=== PATIENT | female | born 1990 | race Caucasian/White ===

== ENCOUNTER 2017-02-22 13:15 | Emergency (ER) | payer BC, MEDICAID, OTHER ==
[~2017-02-22 13:15] MED LIST: ETHO250 PO; FIBECAP2 PO; FOLBTAB4; GNP50LIQ PO; LAMO100 PO; LEVE500 PO; SERO400T3 PO; [UNRECOGNIZED DRUG - REMARK] PO
[2017-02-22 13:17] VITALS: BP 134/83; PULSE 100; RESP 16; TEMP 98.3; O2SAT 100
[2017-02-22] MEDS ORDERED: SODIUM CHLOR 0.9% 1000 ML INJ 1,000 ML IV ONE (13:20)
[2017-02-22 13:23] VITALS: O2SAT 98
--- NOTE | 2017-02-22 13:26 | PD ---
HPI Chief Complaint: SEIZURE,POST ICTAL Time Seen by Provider: 13:20 Travel History International Travel<30 days: No Contact w/Intl Traveler<30days: No Traveled to known affect area: No History of Present Illness HPI PATIENT ARRIVED IN POST ICTAL CONFUSION, NONVERBALLY RESPONSIVE WITH MOTHER AT BEDSIDE, AND SHE GIVES ALL HISTORY....PER MOM PATIENT HAD A TONIC CLONIC SEIZURE AND HIT HER HEAD ON WAY DOWN....HAS H/O SEIZURES ON MULTIPLE ANTIEPILEPTICS AND MANAGED BY NEUROLOGIST AT [facility]. MOM NOTED LEFT SIDED HEAD "GOOSE EGG" THAT WAS BLEEDING AT HOME. ALL:DEPAKOTE AND PCN PMHX: HIRSCHSPRUNG, SEIZURE DISEASE, BIPOLAR PFSH Past Medical History Autoimmune Disease: No Blood Disorders: No Bipolar Disorder: Yes Cancer: No Cardiovascular Problems: No Diabetes: No Diminished Hearing: No Gastrointestinal Disorders: Yes (hirschsprung disease) Musculoskeletal: No Neurologic: Yes Psychiatric: Yes Respiratory: No Seizures: Yes Thyroid Disease: No Ulcer: No : 0 Past Surgical History Abdominal Surgery: Yes (colostomy 1988-revision 1989) Other Surgery: Yes (1988-hirschsprung disease repair, 1989 reattachment surgery ) Social History Alcohol Use: No Tobacco Use: No Substance Use: No Allergies-Medications (Allergen,Severity, Reaction): Coded Allergies: divalproex sodium (Unverified Allergy, Severe, DROWSINESS, 10/29/16) penicillin G (Unverified Allergy, Intermediate, HIVES, 10/29/16) Reported Meds & Prescriptions Reported Meds & Active Scripts Active Reported [Onsi ] 15 Mg PO BID Fiber Formula (Fiber) Cap 1 PO Folbic (Folic Bbrx-Cvqxvcrwhe-Rdkwhums) Tab Stool Softener (Docusate Sodium) 50 Mg/5 Ml Liq 50 Mg PO BID Seroquel Xr (Quetiapine Fumarate) 400 Mg Tab 400 Mg PO HS Keppra (Levetriacetam) 500 Mg Tab 1,500 Mg PO BID Zarontin (Ethosuximide) 250 Mg Cap 500 Mg PO BID Lamictal (Lamotrigine) 100 Mg Tab 400 Mg PO BID Review of Systems Except as stated in HPI: all other systems reviewed are Neg General / Constitutional: No: Fever Eyes: No: Visual changes HENT: No: Headaches Cardiovascular: No: Chest Pain or Discomfort Respiratory: No: Shortness of Breath Gastrointestinal: No: Abdominal Pain Genitourinary: No: Dysuria Musculoskeletal: No: Pain Skin: No Rash Neurologic: Positive: Seizures Psychiatric: No: Depression Endocrine: No: Polydipsia Hematologic/Lymphatic: No: Easy Bruising Physical Exam Narrative GENERAL: SKIN: Warm and dry. HEAD: BHT WITH HEMATOMA ON POSTERIOR LEFT OCCIPITAL AREA 5CM WIDE. NO STEPOFF , NO CREPITUS EYES: Pupils equal and round. No scleral icterus. No injection or drainage. ENT: No nasal bleeding or discharge. Mucous membranes pink and moist. NO HEMOTYMPANUM NECK: Trachea midline. No JVD. CARDIOVASCULAR: Regular rate and rhythm. RESPIRATORY: No accessory muscle use. Clear to auscultation. Breath sounds equal bilaterally. GASTROINTESTINAL: Abdomen soft, non-tender, nondistended. Hepatic and splenic margins not palpable. MUSCULOSKELETAL: Extremities without clubbing, cyanosis, or edema. No obvious deformities. NEUROLOGICAL: Awake BUT IN POST ICTAL CONFUSION 14/15 MOTOR Grossly within normal limits. Five out of 5 muscle strength in the arms and legs. Normal speech. PSYCHIATRIC: Appropriate mood and affect; insight and judgment normal. Data Data Last Documented VS Vital Signs Date Time Temp Pulse Resp B/P (MAP) Pulse Ox O2 Delivery O2 Flow Rate FiO2 02/22/17 13:23 98 Room Air 02/22/17 13:17 98.3 100 16 134/83 (100) Orders Orders Complete Blood Count With Diff (02/22/17 13:20) Alcohol (Ethanol) (02/22/17 13:20) Drug Screen, Random Urine (02/22/17 13:20) Ct Brain W/O Iv Contrast(Rout) (02/22/17 ) Blood Glucose (02/22/17 13:20) Ecg Monitoring (02/22/17 13:20) Iv Access Insert/Monitor (02/22/17 13:20) Oximetry (02/22/17 13:20) Comprehensive Metabolic Panel (02/22/17 13:20) Sodium Chlor 0.9% 1000 Ml Inj (Ns 1000 M (02/22/17 13:20) Sodium Chloride 0.9% Flush (Ns Flush) (02/22/17 13:30) Urinalysis - C+S If Indicated (02/22/17 13:20) Ed Discharge Order (02/22/17 16:08) Labs Laboratory Tests Test 02/22/17 13:43 02/22/17 15:34 White Blood Count 5.6 TH/MM3 Red Blood Count 4.06 MIL/MM3 Hemoglobin 11.8 GM/DL Hematocrit 36.0 % Mean Corpuscular Volume 88.7 FL Mean Corpuscular Hemoglobin 29.0 PG Mean Corpuscular Hemoglobin Concent 32.7 % Red Cell Distribution Width 13.6 % Platelet Count 225 TH/MM3 Mean Platelet Volume 8.6 FL Neutrophils (%) (Auto) 70.5 % Lymphocytes (%) (Auto) 21.2 % Monocytes (%) (Auto) 6.0 % Eosinophils (%) (Auto) 1.8 % Basophils (%) (Auto) 0.5 % Neutrophils # (Auto) 4.0 TH/MM3 Lymphocytes # (Auto) 1.2 TH/MM3 Monocytes # (Auto) 0.3 TH/MM3 Eosinophils # (Auto) 0.1 TH/MM3 Basophils # (Auto) 0.0 TH/MM3 CBC Comment DIFF FINAL Differential Comment Blood Urea Nitrogen 12 MG/DL Creatinine 0.91 MG/DL Random Glucose 96 MG/DL Total Protein 7.3 GM/DL Albumin 3.5 GM/DL Calcium Level 8.7 MG/DL Alkaline Phosphatase 121 U/L Aspartate Amino Transf (AST/SGOT) 12 U/L Alanine Aminotransferase (ALT/SGPT) 16 U/L Total Bilirubin 0.2 MG/DL Sodium Level 141 MEQ/L Potassium Level 3.7 MEQ/L Chloride Level 112 MEQ/L Carbon Dioxide Level 17.9 MEQ/L Anion Gap 11 MEQ/L Estimat Glomerular Filtration Rate 74 ML/MIN Ethyl Alcohol Level LESS THAN 3 MG/DL Urine Collection Type CLEAN CATCH Urine Color YELLOW Urine Turbidity CLEAR Urine pH 6.0 Urine Specific [place] 1.013 Urine Protein NEG mg/dL Urine Glucose (UA) NEG mg/dL Urine Ketones NEG mg/dL Urine Occult Blood LARGE Urine Nitrite NEG Urine Bilirubin NEG Urine Leukocyte Esterase NEG Urine RBC 4-9 /hpf Urine WBC 0-2 /hpf Microscopic Urinalysis Comment CULT NOT INDICATED Urine Opiates Screen NEG Urine Barbiturates Screen NEG Urine Amphetamines Screen NEG Urine Benzodiazepines Screen NEG Urine Cocaine Screen NEG Urine Cannabinoids Screen NEG MDM Medical Decision Making Medical Screen Exam Complete: Yes Emergency Medical Condition: Yes Medical Record Reviewed: Yes Differential Diagnosis ICH V SKULL FX V SCALP LACERATION V ELECTROLYTE ABNL V DRUG/ETOH V NONCOMPLIANCE V BREAKTHROUGH SEIZURE Narrative Course CT NEG FOR SKULL FX NOR ANY ICH, ONLY SHOWED SCALP CONTUSION ALONG WITH SMALL LAC...CBC AND CMP WNL. PATIENT DID NOT PROVIDE UA IN TIME Procedures Procedure Narrative LACERATION LOCATION: [SCALP TOP OF] LENGTH: [1.5CM] NUMBER OF STITCHES/MICHELLE: [2 MICHELLE] REPAIR: The area of the laceration was prepped with Betadine and sterilely draped. The laceration was NOT ANESTHESIZED . The wound was copiously irrigated and explored without evidence of foreign body, tendon injury or neurovascular injury. The wound was closed using [2 MICHELLE]. A sterile dressing was applied. The patient was advised to keep the dressing clean and dry. Patient tolerated the procedure well. Diagnosis Primary Impression: Occipital scalp laceration Qualified Codes: S01.01XA - Laceration without foreign body of scalp, initial encounter Additional Impressions: Seizure Contusion of scalp, initial encounter Patient Instructions: General Instructions, Laceration (ED), Scalp Contusion in Adults (ED) Disposition: 01 DISCHARGE HOME Condition: Stable Rubens Martinez MD Feb 22, 2017 13:26
[2017-02-22] MEDS ORDERED: SODIUM CHLORIDE 0.9% FLUSH 10 ML FLUSH IVF PRN (13:30)
[2017-02-22 13:49] LABS: BASOPHIL % 0.5 % (0.0-2.0); EOSINOPHIL # 0.1 TH/MM3 (0-0.4); EOSINOPHIL % 1.8 % (0.0-4.0); HEMO FLAGS DIFF FINAL; LYMPH % 21.2 % (9.0-44.0); LYMPHOCYTE # 1.2 TH/MM3 (1.0-4.8); MEAN CELL VOLUME 88.7 FL (80.0-100.0); MEAN CORPUSCULAR HGB CONC 32.7 % (32.0-36.0); NEUT % 70.5 % (16.0-70.0); PLATELET COUNT 225 TH/MM3 (150-450); RED BLOOD COUNT 4.06 MIL/MM3 (4.00-5.30); RED CELL DISTRIBUTION WIDTH 13.6 % (11.6-17.2); WHITE BLOOD COUNT 5.6 TH/MM3 (4.0-11.0)
[2017-02-22 13:59] LABS: CHLORIDE 112 MEQ/L (98-107); POTASSIUM 3.7 MEQ/L (3.5-5.1); SODIUM (NA) 141 MEQ/L (136-145)
[2017-02-22 14:03] LABS: ANION GAP 11 MEQ/L (5-15); BICARBONATE 17.9 MEQ/L (21.0-32.0); BLOOD UREA NITROGEN 12 MG/DL (7-18)
[2017-02-22 14:06] LABS: ALT (GPT) 16 U/L (10-53); AST (GOT) 12 U/L (15-37); GLOMERULAR FILTRATION RATE 74 ML/MIN (>89)
[2017-02-22 14:07] LABS: TOTAL BILIRUBIN ADULT 0.2 MG/DL (0.2-1.0)
[2017-02-22 14:09] LABS: ALKALINE PHOSPHATASE 121 U/L (45-117)
[2017-02-22 14:13] LABS: ALCOHOL LESS THAN 3 MG/DL (0-5)
--- NOTE | 2017-02-22 14:19 | RADRPT ---
EXAM DATE/TIME: 02/22/2017 13:50 [place] COMPARISON: CT BRAIN W/O CONTRAST, February 22, 2011, 17:10. INDICATIONS : Seizure, laceration to back of head from fall. RADIATION DOSE: 61.71 CTDIvol (mGy) MEDICAL HISTORY : Seizures. Hirschsprung disease. SURGICAL HISTORY : Colostomy. ENCOUNTER: Initial ACUITY: 1 day PAIN SCALE: 6/10 LOCATION: occipital TECHNIQUE: Multiple contiguous axial images were obtained of the head. Using automated exposure control and adj ustment of the mA and/or kV according to patient size, radiation dose was kept as low as reasonably a chievable to obtain optimal diagnostic quality images. DICOM format image data is available electro nically for review and comparison. FINDINGS: CEREBRUM: The ventricles are normal for age. No evidence of midline shift, mass lesion, hemorrhage or acute in farction. No extra-axial fluid collections are seen. POSTERIOR FOSSA: The cerebellum and brainstem are intact. The 4th ventricle is midline. The cerebellopontine angle i s unremarkable. EXTRACRANIAL: The visualized portion of the orbits is intact. There is soft tissue swelling of the scalp along the left posterior parietal area. SKULL: The calvaria is intact. No evidence of skull fracture. CONCLUSION: 1. Unremarkable and stable CT scan of the brain compared to the prior exam. 2. Soft tissue swelling of the scalp along the left posterior parietal area. Steve Mcgee MD on February 22, 2017 at 14:16 Board Certified Radiologist. This report was verified electronically.
[2017-02-22 15:42] LABS: BLOOD, URINE LARGE (NEG); GLUCOSE,URINE NEG (NEG); KETONE, URINE NEG (NEG); NITRITE,URINE NEG (NEG)
[2017-02-22 15:46] LABS: METHOD OF COLLECTION CLEAN CATCH; URINE COLOR YELLOW (YELLW/STRAW)
[2017-02-22 15:47] LABS: COMMENT (UR) CULT NOT INDICATED; CULTURE IF INDICATED CULT NOT INDICATED; WBC, URINE 0-2 /hpf (0-5)
[2017-02-22 16:25] VITALS: BP 116/74
== END 2017-02-22 16:27 | disposition home or self-care (01) ==
LOC: PHED 13:15
DX: S01.01XA Laceration without foreign body of scalp, initial encounter (principal); S00.03XA Contusion of scalp, initial encounter; G40.909 Epilepsy, unspecified, not intractable, without status epilepticus; Q43.1 Hirschsprung's disease; F31.9 Bipolar disorder, unspecified; W19.XXXA Unspecified fall, initial encounter
CPT/HCPCS: 12001; 70450; 80053; 80307; 81001; 85025; 99285; J7030

== ENCOUNTER 2017-02-27 07:36 | Emergency (ER) | payer OTHER ==
[~2017-02-27] VITALS: Ht 149.9 cm; Wt 54.0 kg
[2017-02-27 07:37] VITALS: BP 125/61; PULSE 123; RESP 16; TEMP 97.9; O2SAT 100
[2017-02-27] MEDS ORDERED: ETHO250 PO (08:01)
[2017-02-27] MEDS ORDERED: LAMI200T2 PO (08:01)
[2017-02-27] MEDS ORDERED: SERO400T PO (08:01)
[2017-02-27] MEDS ORDERED: BRIV1TAB7 PO (08:01)
[2017-02-27] MEDS ORDERED: TOPI25 PO (08:01)
[2017-02-27] MEDS ORDERED: FOLBTAB4 PO (08:01)
[2017-02-27] MEDS ORDERED: CALC625T9 PO (08:01)
[2017-02-27] MEDS ORDERED: DOCU50CA5 PO (08:01)
--- NOTE | 2017-02-27 08:11 | PD ---
HPI Chief Complaint: Wound/Suture/Staple Re-Check Time Seen by Provider: 08:01 Travel History International Travel<30 days: No Contact w/Intl Traveler<30days: No Traveled to known affect area: No History of Present Illness HPI 26yo F presents with seizure disorder and bipolar disorder presents to the ED requesting staple removal. Pt had seizure 02/22 and had [address] in left parietal scalp. Denies any other complaints . Denies any fever, chest pain, sob , n/v, abdominal pain, urinary complaints, focal weakness or numbness. PFSH Past Medical History Autoimmune Disease: No Blood Disorders: No Bipolar Disorder: Yes Cancer: No Cardiovascular Problems: No Diabetes: No Diminished Hearing: No Gastrointestinal Disorders: Yes (hirschsprung disease) Musculoskeletal: No Neurologic: Yes Psychiatric: Yes Respiratory: No Immunizations Current: Yes Seizures: Yes Thyroid Disease: No Ulcer: No ?: Not LMP: 1 week ago : 0 Past Surgical History Abdominal Surgery: Yes (colostomy 1988-revision 1989) Other Surgery: Yes (1988-hirschsprung disease repair, 1989 reattachment surgery ) Social History Alcohol Use: No Tobacco Use: No (never) Substance Use: No Allergies-Medications (Allergen,Severity, Reaction): Coded Allergies: divalproex sodium (Unverified Allergy, Severe, DROWSINESS, 02/27/17) penicillin G (Unverified Allergy, Intermediate, HIVES, 02/27/17) Reported Meds & Prescriptions Reported Meds & Active Scripts Active Reported Fiber Laxative (Calcium Polycarbophil) 625 Mg Tab 625 Mg PO BID Stool Softener (Docusate Sodium) 50 Mg Capsule 50 Mg PO BID Folbic (Folic Fqnw-Djgqftdwzr-Jlpbfdrq) 2.5-25-2 Mg Tab 1 Tab PO DAILY Topamax (Topiramate) 25 Mg Tab 100 Mg PO BID Briviact (Brivaracetam) 100 Mg Tab 100 Mg PO BID Zarontin (Ethosuximide) 250 Mg Cap 500 Mg PO BID Lamictal XR (Lamotrigine) 200 Mg Lisa 400 Mg PO DAILY Seroquel (Quetiapine Fumarate) 400 Mg Tab 800 Mg PO HS Review of Systems Except as stated in HPI: all other systems reviewed are Neg Physical Exam Narrative GENERAL: 26yo anxious appearing. SKIN: Focused skin assessment warm/dry. HEAD: +2 rosa in left parietal scalp. NECK: Trachea midline. No JVD. CARDIOVASCULAR: Tachycardic in the 120s. No murmur appreciated. RESPIRATORY: No accessory muscle use. Clear to auscultation. Breath sounds equal bilaterally. GASTROINTESTINAL: Abdomen soft, non-tender, nondistended. MUSCULOSKELETAL: No obvious deformities. No clubbing. No cyanosis. No edema. NEUROLOGICAL: Awake and alert. No obvious cranial nerve deficits. Motor grossly within normal limits. Normal speech. PSYCHIATRIC: Appropriate mood and affect; insight and judgment normal. Data Data Last Documented VS Vital Signs Date Time Temp Pulse Resp B/P (MAP) Pulse Ox O2 Delivery O2 Flow Rate FiO2 02/27/17 08:41 109 18 100 Room Air 02/27/17 07:37 97.9 125/61 (82) Orders Orders Ed Discharge Order (02/27/17 08:40) [facility] Medical Decision Making Medical Screen Exam Complete: Yes Emergency Medical Condition: Yes Differential Diagnosis Staple removal vs. anxiety Narrative Course 26yo F here requesting staple removal after scalp laceration repair on 02/22/17. Pt does appear very anxious and HR is 120bpm. Denies any complaints. Mother said her heart rate is always high and has no symptoms. Pt is now resting more comfortably in bed and HR is down to 109bpm. Return precautions given. Procedures Procedure Narrative Removed 2 rosa in left parietal scalp. No complications. Diagnosis Primary Impression: Removal of staple Patient Instructions: General Instructions Departure Forms: Tests/Procedures Additional Instructions: Please follow up with your primary care physician in 3-7 days. Return to the ED if symptoms worsen. Med/Other Pt SpecificInfo: No Change to Meds Disposition: 01 DISCHARGE HOME Condition: Stable Julita Dunlap DO Feb 27, 2017 08:11
[2017-02-27 08:41] VITALS: PULSE 109; RESP 18; O2SAT 100
== END 2017-02-27 08:49 | disposition home or self-care (01) ==
LOC: PHED 07:36
DX: S01.01XD Laceration without foreign body of scalp, subsequent encounter (principal); X58.XXXD Exposure to other specified factors, subsequent encounter; Z48.02 Encounter for removal of sutures
CPT/HCPCS: 99281

== ENCOUNTER 2017-09-02 20:19 | Observation (INO) | payer OTHER ==
[~2017-09-02] VITALS: Ht 152.4 cm; Wt 55.0 kg
[~2017-09-02 20:19] MED LIST changes: +BRIV1TAB7 PO; +CALC625T9 PO; +DOCU50CA5 PO; -FIBECAP2 PO; -FOLBTAB4; +FOLBTAB4 PO; -GNP50LIQ PO; +LAMI200T2 PO; -LAMO100 PO; -LEVE500 PO; +SERO400T PO; -SERO400T3 PO; +TOPI25 PO; -[UNRECOGNIZED DRUG - REMARK] PO
[2017-09-02 20:23] VITALS: BP 125/60; PULSE 132; RESP 18; TEMP 98.4; O2SAT 98
[2017-09-02] MEDS ORDERED: TOPA50TA7 PO (20:42)
[2017-09-02 20:47] VITALS: BP 132/75; PULSE 119; RESP 18; O2SAT 99
--- NOTE | 2017-09-02 21:57 | PD ---
HPI Chief Complaint: Seizure Time Seen by Provider: 21:21 Travel History International Travel<30 days: No Contact w/Intl Traveler<30days: No Traveled to known affect area: No History of Present Illness HPI The patient is a 26-year-old female that has had 4 seizures today. She has never had this many before. She has had seizures since age 11. These are for grand mal seizures and she has had multiple minor seizures today which was normal. The patient normally has about 8 seizures a month. She is followed at [facility] by Dr. Rebollar. She has in the past got nauseated with seizures and she is nauseated today. She gets an occasional headache after seizures which is mild, she has a mild headache now. The patient does not want to be admitted. Her mother says she is in the process of getting a power of civil rights attorney but it has not been done yet. PFSH Past Medical History Autoimmune Disease: No Blood Disorders: No Bipolar Disorder: Yes Cancer: No Cardiovascular Problems: No Diabetes: No Diminished Hearing: No Gastrointestinal Disorders: Yes (hirschsprung disease) Musculoskeletal: No Neurologic: Yes Psychiatric: Yes Respiratory: No Immunizations Current: Yes Seizures: Yes Thyroid Disease: No Ulcer: No Tetanus Vaccination: > 5 Years Influenza Vaccination: No ?: Not LMP: 08/19/17 : 0 Past Surgical History Abdominal Surgery: Yes (colostomy 1988-revision 1989) Other Surgery: Yes (1988-hirschsprung disease repair, 1989 reattachment surgery ) Social History Alcohol Use: No Tobacco Use: No (never) Substance Use: No Allergies-Medications (Allergen,Severity, Reaction): Coded Allergies: divalproex sodium (Unverified Allergy, Severe, DROWSINESS, 09/02/17) penicillin G (Unverified Allergy, Intermediate, HIVES, 09/02/17) Reported Meds & Prescriptions Reported Meds & Active Scripts Active Reported Topamax (Topiramate) 50 Mg Tab 150 Mg PO BID Fiber Laxative (Calcium Polycarbophil) 625 Mg Tab 625 Mg PO BID Stool Softener (Docusate Sodium) 50 Mg Capsule 50 Mg PO BID Folbic (Folic Xjsg-Fpkkovjelz-Sndirzzd) 2.5-25-2 Mg Tab 1 Tab PO DAILY Briviact (Brivaracetam) 100 Mg Tab 100 Mg PO BID Zarontin (Ethosuximide) 250 Mg Cap 500 Mg PO BID Lamictal XR (Lamotrigine) 200 Mg Lisa 400 Mg PO DAILY Seroquel (Quetiapine Fumarate) 400 Mg Tab 800 Mg PO HS Review of Systems Except as stated in HPI: all other systems reviewed are Neg Physical Exam Narrative GENERAL: The patient is alert, oriented 3 in no apparent distress. The vital signs are normal initially except for heart rate of 132 and repeat is 119 heart rate. The rest of vital signs are normal. Oximetry is 98 and 99%. SKIN: Focused skin assessment warm/dry. HEAD: Atraumatic. Normocephalic. EYES: Pupils equal and round. No scleral icterus. No injection or drainage. ENT: No nasal bleeding or discharge. Mucous membranes pink and moist. No tongue bite kwan are present. NECK: Trachea midline. No JVD. CARDIOVASCULAR: Regular rate and rhythm. No murmur appreciated. RESPIRATORY: No accessory muscle use. Clear to auscultation. Breath sounds equal bilaterally. GASTROINTESTINAL: Abdomen soft, non-tender, nondistended. Hepatic and splenic margins not palpable. MUSCULOSKELETAL: No obvious deformities. No clubbing. No cyanosis. No edema. NEUROLOGICAL: Awake and alert. No obvious cranial nerve deficits. Motor grossly within normal limits. Normal speech. PSYCHIATRIC: Appropriate mood and affect; insight and judgment normal. Data Data Last Documented VS Vital Signs Date Time Temp Pulse Resp B/P (MAP) Pulse Ox O2 Delivery O2 Flow Rate FiO2 09/02/17 22:26 115 20 115/79 (91) 97 Room Air 09/02/17 20:23 98.4 Orders Orders Complete Blood Count With Diff (09/02/17 21:49) Comprehensive Metabolic Panel (09/02/17 21:49) Urinalysis - C+S If Indicated (09/02/17 21:49) Beta Hcg (Quant/Titer) (09/02/17 21:49) Ct Brain W/O Iv Contrast(Rout) (09/02/17 21:49) Lorazepam Inj (Ativan Inj) (09/02/17 22:15) Labs Laboratory Tests Test 09/02/17 22:13 White Blood Count 10.6 TH/MM3 Red Blood Count 3.85 MIL/MM3 Hemoglobin 11.5 GM/DL Hematocrit 34.7 % Mean Corpuscular Volume 90.2 FL Mean Corpuscular Hemoglobin 29.8 PG Mean Corpuscular Hemoglobin Concent 33.0 % Red Cell Distribution Width 14.1 % Platelet Count 235 TH/MM3 Mean Platelet Volume 8.6 FL Neutrophils (%) (Auto) 82.9 % Lymphocytes (%) (Auto) 11.6 % Monocytes (%) (Auto) 5.0 % Eosinophils (%) (Auto) 0.2 % Basophils (%) (Auto) 0.3 % Neutrophils # (Auto) 8.9 TH/MM3 Lymphocytes # (Auto) 1.2 TH/MM3 Monocytes # (Auto) 0.5 TH/MM3 Eosinophils # (Auto) 0.0 TH/MM3 Basophils # (Auto) 0.0 TH/MM3 CBC Comment DIFF FINAL Differential Comment Urine Color YELLOW Urine Turbidity SL CLOUDY Urine pH 7.0 Urine Specific [place] GREATER/EQUAL 1.030 Urine Protein TRACE mg/dL Urine Glucose (UA) NEG mg/dL Urine Ketones NEG mg/dL Urine Occult Blood NEG Urine Nitrite NEG Urine Bilirubin NEG Urine Urobilinogen 0.2 MG/DL Urine Leukocyte Esterase NEG Urine RBC 0-2 /hpf Urine WBC 0-2 /hpf Urine Squamous Epithelial Cells 0-5 /hpf Urine Amorphous Sediment MOD Urine Bacteria NONE /hpf Microscopic Urinalysis Comment CULT NOT INDICATED Blood Urea Nitrogen 16 MG/DL Creatinine 1.20 MG/DL Random Glucose 112 MG/DL Total Protein 8.0 GM/DL Albumin 4.0 GM/DL Calcium Level 8.1 MG/DL Alkaline Phosphatase 109 U/L Aspartate Amino Transf (AST/SGOT) 12 U/L Alanine Aminotransferase (ALT/SGPT) 19 U/L Total Bilirubin 0.2 MG/DL Sodium Level 137 MEQ/L Potassium Level 3.8 MEQ/L Chloride Level 109 MEQ/L Carbon Dioxide Level 11.9 MEQ/L Anion Gap 16 MEQ/L Estimat Glomerular Filtration Rate 53 ML/MIN Human Chorionic Gonadotropin, Quant LESS THAN 1 MIU/ML MDM Medical Decision Making Medical Screen Exam Complete: Yes Emergency Medical Condition: Yes Medical Record Reviewed: Yes Interpretation(s) The CBC shows a hemoglobin 11.5 and hematocrit 34.7 with 83% neutrophils but is otherwise unremarkable. The complete metabolic profile shows a GFR 53, creatinine 1.2, calcium 8.1 but is otherwise unremarkable. The beta-hCG is less than 1, she is not . Urinalysis is normal except for specific gravity of greater than or equal to 1.030. Differential Diagnosis Dehydration, electrolyte disorder, seizures because of noncompliance to medications, seizures because of inadequate medication, pseudoseizure Narrative Course The patient has been controlled on this level medication for years. She states she is compliant completely on the medications. We cannot measure the level of any of these medications here. She likely is dehydrated as indicated by the high urine specific gravity 1.030. She also has a slightly low GFR which may reflect dehydration. The patient has been given 1 mg Ativan when she had a grand mal seizure here in the emergency department. I witnessed a grand mal seizure here and it did not look like a pseudoseizure. I discussed the patient with cerebral who is covering for Dr. Hernandes, the patient will be [address] Hernandes. Diagnosis Primary Impression: Seizures Additional Impressions: Seizure disorder Mild dehydration Vicente Calvo MD Sep 02, 2017 21:56
[2017-09-02] MEDS ORDERED: LORazepam 2 MG/ML VIAL IV PUSH ONE (22:15)
[2017-09-02 22:17] LABS: BILIRUBIN, URINE NEG (NEG); BLOOD, URINE NEG (NEG); GLUCOSE,URINE NEG (NEG); KETONE, URINE NEG (NEG); NITRITE,URINE NEG (NEG); URINE COLOR YELLOW (YELLW/STRAW); URINE LEUKOCYTE ESTERASE NEG (NEG)
[2017-09-02 22:21] LABS: AUTOMATED NEUTROPHIL # 8.9 TH/MM3 (1.8-7.7); BASOPHIL % 0.3 % (0.0-2.0); EOSINOPHIL % 0.2 % (0.0-4.0); HEMATOCRIT 34.7 % (35.0-46.0); HEMOGLOBIN 11.5 GM/DL (11.6-15.3); LYMPH % 11.6 % (9.0-44.0); LYMPHOCYTE # 1.2 TH/MM3 (1.0-4.8); MEAN CELL VOLUME 90.2 FL (80.0-100.0); MEAN CORPUSCULAR HEMOGLOBIN 29.8 PG (27.0-34.0); MEAN PLATELET VOLUME 8.6 FL (7.0-11.0); MONOCYTE # 0.5 TH/MM3 (0-0.9); NEUT % 82.9 % (16.0-70.0); PLATELET COUNT 235 TH/MM3 (150-450); RED BLOOD COUNT 3.85 MIL/MM3 (4.00-5.30); RED CELL DISTRIBUTION WIDTH 14.1 % (11.6-17.2); WHITE BLOOD COUNT 10.6 TH/MM3 (4.0-11.0)
[2017-09-02 22:23] LABS: AMORPHOUS SEDIMENT, URINE MOD; RBC, URINE 0-2 /hpf (0-3); SQUAMOUS EPITHELIAL CELL URINE 0-5 /hpf (0-5); WBC, URINE 0-2 /hpf (0-5)
[2017-09-02 22:26] VITALS: BP 115/79; PULSE 115; RESP 20; O2SAT 97
[2017-09-02 22:27] LABS: CHLORIDE 109 MEQ/L (98-107); SODIUM (NA) 137 MEQ/L (136-145)
[2017-09-02 22:31] LABS: BICARBONATE 11.9 MEQ/L (21.0-32.0); BLOOD UREA NITROGEN 16 MG/DL (7-18); CALCIUM 8.1 MG/DL (8.5-10.1); GLUCOSE,RANDOM 112 MG/DL (74-106)
[2017-09-02 22:34] LABS: ALT (GPT) 19 U/L (10-53); AST (GOT) 12 U/L (15-37); GLOMERULAR FILTRATION RATE 53 ML/MIN (>89)
[2017-09-02 22:36] LABS: TOTAL BILIRUBIN ADULT 0.2 MG/DL (0.2-1.0)
[2017-09-02 22:37] LABS: ALKALINE PHOSPHATASE 109 U/L (45-117)
--- NOTE | 2017-09-02 23:14 | RADRPT ---
EXAM DATE: 09/02/2017 11:06 PM EDT AGE/SEX: 26 years / Female INDICATIONS: Four seizures today. CLINICAL DATA: This is the patient's initial encounter. Patient reports that signs and symptoms have been present for 1 day and indicates a pain score of 0/10. MEDICAL/SURGICAL HISTORY: . Seizures. Hirschsprung disease. None. RADIATION DOSE: 52.67 CTDI (mGy) COMPARISON: [facility], CT BRAIN W/O CONTRAST, 02/22/2017. . TECHNIQUE: CT of the head without contrast. Using automated exposure control and adjustment of the mA and/or kV according to patient size, radiation dose was kept as low as reasonably achievable to ob tain optimal diagnostic quality images. DICOM format image data is available electronically for revi ew and comparison. FINDINGS: Cerebrum: The ventricles are normal for age. No evidence of midline shift, mass lesion, hemorrhage or acute infarction. No extraaxial fluid collections are seen. Posterior Fossa: The cerebellum and brainstem are intact. The 4th ventricle is midline. The cerebe llopontine angle is unremarkable. Extracranial: The visualized portion of the orbits is intact. Skull: The calvaria is intact. No evidence of skull fracture. CONCLUSION: 1. Negative CT Head non contrast. Electronically signed by: Gabriel Robert MD 09/02/2017 11:13 PM EDT
[2017-09-02] MEDS ORDERED: SODIUM CHLOR 0.9% 1000 ML INJ 1,000 ML IV ONE (23:15)
[2017-09-02] MEDS ORDERED: SODIUM CHLORIDE 0.9% FLUSH 10 ML FLUSH IV FLUSH PRN (23:15)
[2017-09-02] MEDS ORDERED: NALOXONE HCL 0.4 MG/ML AMP IV PUSH PRN (23:15)
[2017-09-02] MEDS ORDERED: LORazepam 2 MG/ML VIAL IV PUSH PRN (23:30)
[2017-09-03] VITALS (19 sets, daily range): BP systolic 95–127; BP diastolic 63–93; PULSE 104–126; RESP 16–32; TEMP 96.4–100; O2SAT 97–100
[2017-09-03] MEDS ORDERED: TOPI25 PO (00:30)
[2017-09-03] MEDS: ONDANSETRON ODT 4 MG TAB SL PRN ×2 (01:14→09:24)
[2017-09-03] MEDS ORDERED: PROCHLORPERAZINE INJ 10 MG/2 ML VIAL IV PUSH ONE (03:30)
--- NOTE | 2017-09-03 08:40 | PD.CONS ---
History of Present Illness Service Neurology Consult Requested By Dr. Calvo Reason for Consult Seizure Primary Care Physician No Primary Care Physician History of Present Illness 26 y/o female with long standing seizure disorder since age 11, presented to the ER after have 5 generalized seizures yesterday. Currently on 4 medications and considering VNS as her mother reports she has failed all other medications and not candidate for other epilepsy surgery. She is followed by an epileptologist at [facility]. Mother states that she has small myoclonic jerks intermittently. Currently on Topamax, Lamictal, Briviact and Ethosuximide. Topamax 100mg bid caused severe fatigue and dose was lowered to 75mg. Has also been seen at [facility] for second opinion and mother reports they agreed with [facility]. She has had multiple MRIs and video eegs. Her mother denies any hx of pseudoseizures or nonepileptic seizures. Pt states she has been compliant with her medication. She denies recent infection or sleep deprivation. Did have alcoholic beverage about 2 nights ago but denies hx of increase seizure after drinking. Pt had EEG this morning. Reports she continues to note mild nausea. Denies any seizure activity this morning (Siena Escalante) Review of Systems Constitutional: Negative except HPI Eye: Negative Except HPI ENMT: Negative except HPI Respiratory: Negative except HPI Cardiovascular: Negative except HPI Gastrointestinal: Negative except HPI, Nausea Jake/Lymph: Negative except HPI Musculoskeletal: Negative except HPI Neurologic: Negative except HPI, Headache Psychiatric: Negative except HPI All other ROS: ROS reviewed as documented in chart (Siena Escalante) Past Family Social History Allergies: Coded Allergies: divalproex sodium (Unverified Allergy, Severe, DROWSINESS, 09/02/17) penicillin G (Unverified Allergy, Intermediate, HIVES, 09/02/17) Past Medical History seizure disorder, bipolar disorder Past Surgical History colostomy with revision Active Ordered Medications Current Medications Medications (Trade) Dose Ordered Sig/Anum Route Start Time Stop Time Status Last Admin (NS Flush) 2 ml UNSCH PRN IV FLUSH 09/02/17 23:15 (NS Flush) 2 ml BID IV FLUSH 09/03/17 09:00 (Narcan Inj) 0.4 mg UNSCH PRN IV PUSH 09/02/17 23:15 (Ativan Inj) 2 mg Q10M PRN IV PUSH 09/02/17 23:30 (Zofran Odt) 4 mg Q6H PRN SL 09/03/17 01:15 09/03/17 01:14 (Topamax) 75 mg BID PO 09/03/17 09:00 Patient Own Medication PT OWN MED: BRIVIACT (BRIVARACET... BID PO 09/03/17 09:00 Future Hold Patient Own Medication PT OWN MED: ZARONTIN (ETHOSUXIMI... BID PO 09/03/17 09:00 Future Hold Patient Own Medication PT OWN MED: FOLBI... DAILY PO 09/03/17 09:00 Future Hold Patient Own Medication PT OWN MED: LAMIC... DAILY PO 09/03/17 09:00 Future Hold (SEROquel) 800 mg HS PO 09/03/17 21:00 Family History no fam hx of seizures Social History no tobacco or drugs, rare ETOH (Siena Escalante) Exam I&O / VS Vital Signs Date Time Temp Pulse Resp B/P (MAP) Pulse Ox O2 Delivery O2 Flow Rate FiO2 09/03/17 01:15 98.2 115 18 102/80 (87) 100 09/03/17 00:42 110 16 115/66 (82) 97 09/03/17 00:00 98.2 115 18 102/80 (87) 100 09/02/17 22:26 115 20 115/79 (91) 97 Room Air 09/02/17 20:47 119 18 132/75 (94) 99 Room Air 09/02/17 20:23 98.4 132 18 125/60 (81) 98 General: Alert and Oriented, No acute distress Eye: PERRL, EOMI Respiratory: Non-labored respirations Cardiology: No murmur Neurologic: Alert, Oriented, Normal sensory, Normal motor, No focal defects, CN II-XII intact, Normal DTR's Psychiatric: Other (flat affect) Exam Comments no drift, gait withheld, toes downgoing, no facial asymmetry (Siena Escalante) Review/Management Diagnosis/Plan: (1) Seizure disorder ICD Codes: G40.909 - Epilepsy, unspecified, not intractable, without status epilepticus Status: Chronic Plan: followed by epileptologist at [facility] for last 10 yrs video eeg in past neg for nonepileptic events per pt mother MRI normal in past per pt month EEG pending has appt at [facility] on Friday unable to tolerate higher doses of Topamax due to fatigue on max dose of Briviact, Lamictal and ethosuximide she is considering VNS placement as per pt's mother she has tried all seizure medications discussed with mother, agree that VNS placement would be good option for pt start Klonopin 1mg qhs continue to monitor seizure precautions no driving (2) Mild dehydration ICD Codes: E86.0 - Dehydration Status: Acute Plan: repeat CMP pending pt was given fluids (3) Bipolar disorder ICD Codes: F31.9 - Bipolar disorder, unspecified Status: Chronic Plan: continue Seroquel and follow with psychiatry (Siena Escalante) Plan MD note agree with PA's evaulation d/w and will add klonopin needs to stay on current aed's needs to go to [facility] for f/u consider VNS. sz precautions /ativan prn eeg Diagnosis/Plan: (Ellyn Steel MD) Siena Escalante Sep 03, 2017 08:40 Ellyn Steel MD Sep 03, 2017 14:16
[2017-09-03] MEDS ORDERED: LAMOTRIGINE PO SCH ×2 (09:00→11:30)
[2017-09-03] MEDS ORDERED: BRIVARACETAM PO SCH (09:00)
[2017-09-03] MEDS ORDERED: ETHOSUXIMIDE PO SCH (09:00)
[2017-09-03] MEDS ORDERED: FOLBIC PO SCH (09:00)
[2017-09-03] MEDS: DOCUSATE SODIUM 100 MG/10 ML UDC PO SCH ×2 (09:25→21:00)
[2017-09-03] MEDS ORDERED: CALCIUM POLYCARBOPHIL 625 MG TAB PO SCH (10:00)
[2017-09-03] MEDS: TOPIRAMATE 25 MG TAB PO SCH ×2 (10:37→22:24)
[2017-09-03] MEDS: SODIUM CHLORIDE 0.9% FLUSH 10 ML FLUSH IV FLUSH SCH ×2 (10:38→21:00)
[2017-09-03] MEDS: ZARONTIN PO SCH ×2 (10:39→22:25)
[2017-09-03] MEDS: BRIVIACT 50 MG PO SCH ×2 (10:40→22:24)
[2017-09-03 10:49] LABS: AUTOMATED NEUTROPHIL # 4.7 TH/MM3 (1.8-7.7); BASOPHIL % 0.5 % (0.0-2.0); EOSINOPHIL % 0.2 % (0.0-4.0); HEMATOCRIT 33.5 % (35.0-46.0); HEMOGLOBIN 10.7 GM/DL (11.6-15.3); LYMPH % 18.4 % (9.0-44.0); LYMPHOCYTE # 1.2 TH/MM3 (1.0-4.8); MEAN CELL VOLUME 89.9 FL (80.0-100.0); MEAN CORPUSCULAR HEMOGLOBIN 28.7 PG (27.0-34.0); MEAN CORPUSCULAR HGB CONC 31.9 % (32.0-36.0); MEAN PLATELET VOLUME 8.6 FL (7.0-11.0); MONO % 9.4 % (0.0-8.0); MONOCYTE # 0.6 TH/MM3 (0-0.9); NEUT % 71.5 % (16.0-70.0); PLATELET COUNT 218 TH/MM3 (150-450); RED BLOOD COUNT 3.73 MIL/MM3 (4.00-5.30); RED CELL DISTRIBUTION WIDTH 13.9 % (11.6-17.2); WHITE BLOOD COUNT 6.5 TH/MM3 (4.0-11.0)
[2017-09-03] MEDS: FOLBIC PO SCH (11:00)
[2017-09-03 11:02] LABS: CALCIUM 7.8 MG/DL (8.5-10.1)
[2017-09-03 11:03] LABS: BICARBONATE 19.4 MEQ/L (21.0-32.0)
[2017-09-03 11:06] LABS: CREATININE 0.76 MG/DL (0.50-1.00)
--- NOTE | 2017-09-03 13:05 | HHI.HP ---
HPI Service [facility] Primary Care Physician No Primary Care Physician Admission Diagnosis Multiple seizures Diagnoses: (1) Seizures Diagnosis: Principal Chief Complaint: Seizure Travel History International Travel<30 Days: No Contact w/Intl Traveler <30 Da: No Traveled to Known Affected Are: No History of Present Illness 26-year-old female with known history of seizure disorder, bipolar disorder who presented to the hospital for evaluation of seizure. Patient appears to be very tired and has difficulty arousing her when I spoke with her. I was able to wake her up, she did not want to participate that well in conversation and kept falling back asleep. Patient states that she did not get much sleep last night because the antinausea medication we gave her did not help that well. Apparently the patient does have history of chronic seizures and is managed by specialist up at [facility]. She does have an appointment with them on Friday. However records indicate that she usually has approximately 8 seizures a month, however he had 4 seizures yesterday and that is what brought the patient to get evaluated at the hospital. It was indicated that patient has been compliant with her medications and despite this she continued to have seizures. As indicated that patient has tried almost all type of seizure medications and is followed by a seizure specialist. Patient did have a grand mal seizure while in the emergency department and was witnessed by the ER physician. Patient was given Ativan 2 mg IV and patient was admitted the hospital for further evaluation and management. Review of Systems Gastrointestinal: COMPLAINS OF: Nausea Neurologic: COMPLAINS OF: Seizures Except as stated in HPI: all other systems reviewed are Neg Past Family Social History Past Medical History Seizure disorder Bipolar disorder Adjustment disorder History of suicidal attempts Chronic constipation/obstipation History of Hirschsprung's disorder Past Surgical History Records indicate colostomy with revision Reported Medications Reported Meds & Active Scripts Active Reported Topamax (Topiramate) 25 Mg Tab 75 Mg PO BID Fiber Laxative (Calcium Polycarbophil) 625 Mg Tab 625 Mg PO BID Stool Softener (Docusate Sodium) 50 Mg Capsule 50 Mg PO BID Folbic (Folic Nqao-Cawbzzivbu-Jipfkrop) 2.5-25-2 Mg Tab 1 Tab PO DAILY Briviact (Brivaracetam) 100 Mg Tab 100 Mg PO BID Zarontin (Ethosuximide) 250 Mg Cap 500 Mg PO BID Lamictal XR (Lamotrigine) 200 Mg Lisa 200 Mg PO BID Seroquel (Quetiapine Fumarate) 400 Mg Tab 800 Mg PO HS Allergies: Coded Allergies: divalproex sodium (Unverified Allergy, Severe, DROWSINESS, 09/02/17) penicillin G (Unverified Allergy, Intermediate, HIVES, 09/02/17) Family History Record review and indicate father with diabetes. Social History No indications of tobacco, alcohol or illegal drugs Physical Exam Vital Signs Vital Signs Date Time Temp Pulse Resp B/P (MAP) Pulse Ox O2 Delivery O2 Flow Rate FiO2 09/03/17 12:00 110 29 113/71 (85) 97 09/03/17 11:00 110 32 124/90 (101) 97 09/03/17 10:14 122 28 127/93 (104) 97 09/03/17 09:00 99.1 122 20 112/79 (90) 98 09/03/17 07:50 96.4 117 20 107/70 (82) 100 09/03/17 01:15 98.2 115 18 102/80 (87) 100 09/03/17 00:42 110 16 115/66 (82) 97 09/03/17 00:00 98.2 115 18 102/80 (87) 100 09/02/17 22:26 115 20 115/79 (91) 97 Room Air 09/02/17 20:47 119 18 132/75 (94) 99 Room Air 09/02/17 20:23 98.4 132 18 125/60 (81) 98 Physical Exam GENERAL: Well-developed, well-nourished, in no acute distress. alert when he woke up. Orientated HEENT: Head is normocephalic without any lesions or masses noted. Facial features are symmetric. Eyes: Pupils equal round reactive to light. Extraocular muscles are intact. Conjunctivae were clear. Oropharyngeal: Pharynx without any erythema edema. Tongue is midline without deviation. Buccal mucosa is moist without any masses or lesions NECK: Supple without any masses. Trachea midline no deviation. No JVD, no bruits are appreciated CARDIAC: Regular rhythm, regular rate. S1/S2 are heard. No murmurs gallops or rubs. LUNGS: Clear to auscultation bilaterally. No wheeze, rhonchi or rales. No use of accessory muscles on inspiration or expiration. ABDOMEN: Soft, nontender. Nondistended. Bowel sounds heard in all 4 quadrants. No organomegaly or masses. Negative rebound, negative guarding EXTREMITIES: No edema, pulses are equal bilaterally. No cyanosis or clubbing NEUROLOGY: Mood and affect appear appropriate when she wakes up. Cranial nerves II through XII grossly intact. Muscle strength 5/5 in upper and lower extremities bilaterally. Deep tendon reflexes are 2+ in upper and lower extremities bilaterally. Laboratory Laboratory Tests Test 09/02/17 22:13 09/03/17 10:40 White Blood Count 10.6 6.5 Red Blood Count 3.85 3.73 Hemoglobin 11.5 10.7 Hematocrit 34.7 33.5 Mean Corpuscular Volume 90.2 89.9 Mean Corpuscular Hemoglobin 29.8 28.7 Mean Corpuscular Hemoglobin Concent 33.0 31.9 Red Cell Distribution Width 14.1 13.9 Platelet Count 235 218 Mean Platelet Volume 8.6 8.6 Neutrophils (%) (Auto) 82.9 71.5 Lymphocytes (%) (Auto) 11.6 18.4 Monocytes (%) (Auto) 5.0 9.4 Eosinophils (%) (Auto) 0.2 0.2 Basophils (%) (Auto) 0.3 0.5 Neutrophils # (Auto) 8.9 4.7 Lymphocytes # (Auto) 1.2 1.2 Monocytes # (Auto) 0.5 0.6 Eosinophils # (Auto) 0.0 0.0 Basophils # (Auto) 0.0 0.0 CBC Comment DIFF FINAL DIFF FINAL Differential Comment Urine Color YELLOW Urine Turbidity SL CLOUDY Urine pH 7.0 Urine Specific [place] GREATER/EQUAL 1.030 Urine Protein TRACE Urine Glucose (UA) NEG Urine Ketones NEG Urine Occult Blood NEG Urine Nitrite NEG Urine Bilirubin NEG Urine Urobilinogen 0.2 Urine Leukocyte Esterase NEG Urine RBC 0-2 Urine WBC 0-2 Urine Squamous Epithelial Cells 0-5 Urine Amorphous Sediment MOD Urine Bacteria NONE Microscopic Urinalysis Comment CULT NOT INDICATED Blood Urea Nitrogen 16 19 Creatinine 1.20 0.76 Random Glucose 112 102 Total Protein 8.0 Albumin 4.0 Calcium Level 8.1 7.8 Alkaline Phosphatase 109 Aspartate Amino Transf (AST/SGOT) 12 Alanine Aminotransferase (ALT/SGPT) 19 Total Bilirubin 0.2 Sodium Level 137 142 Potassium Level 3.8 4.0 Chloride Level 109 112 Carbon Dioxide Level 11.9 19.4 Anion Gap 16 11 Estimat Glomerular Filtration Rate 53 91 Human Chorionic Gonadotropin, Quant LESS THAN 1 Result Diagram: 09/03/17 1040 09/03/17 1040 Imaging Last Impressions Head CT 09/02/179 Signed Impressions: CONCLUSION: 1. Negative CT Head non contrast. Caprini VTE Risk Assessment Caprini VTE Risk Assessment: No/Low Risk (score <= 1) Caprini Risk Assessment Model Point Value = 1 Point Value = 2 Point Value = 3 Point Value = 5 Age 41-60 Minor surgery BMI > 25 kg/m2 Swollen legs Varicose veins or History of unexplained or recurrent spontaneous Oral contraceptives or hormone replacement Sepsis (< 1 month) Serious lung disease, including pneumonia (< 1 month) Abnormal pulmonary function Acute myocardial infarction Congestive heart failure (< 1 month) History of inflammatory bowel disease Medical patient at bed rest Age 61-74 Arthroscopic surgery Major open surgery (> 45 min) Laparoscopic surgery (> 45 min) Malignancy Confined to bed (> 72 hours) Immobilizing plaster cast Central venous access Age >= 75 History of VTE Family history of VTE Factor V Leiden Prothrombin [id number] Lupus anticoagulant Anticardiolipin antibodies Elevated serum homocysteine Heparin-induced thrombocytopenia Other congenital or acquired thrombophilia Stroke (< 1 month) Elective arthroplasty Hip, pelvis, or leg fracture Acute spinal cord injury (< 1 month) Prophylaxis Regimen Total Risk Factor Score Risk Level Prophylaxis Regimen 0-1 Low Early ambulation 2 Moderate Order ONE of the following: *Sequential Compression Device (SCD) *Heparin 5000 units SQ BID 3-4 Higher Order ONE of the following medications: *Heparin 5000 units SQ TID *Enoxaparin/Lovenox 40 mg SQ daily (WT < 150 kg, CrCl > 30 mL/min) *Enoxaparin/Lovenox 30 mg SQ daily (WT < 150 kg, CrCl > 10-29 mL/min) *Enoxaparin/Lovenox 30 mg SQ BID (WT < 150 kg, CrCl > 30 mL/min) AND/OR *Sequential Compression Device (SCD) 5 or more Highest Order ONE of the following medications: *Heparin 5000 units SQ TID (Preferred with Epidurals) *Enoxaparin/Lovenox 40 mg SQ daily (WT < 150 kg, CrCl > 30 mL/min) *Enoxaparin/Lovenox 30 mg SQ daily (WT < 150 kg, CrCl > 10-29 mL/min) *Enoxaparin/Lovenox 30 mg SQ BID (WT < 150 kg, CrCl > 30 mL/min) AND *Sequential Compression Device (SCD) Assessment and Plan Assessment and Plan Chronic seizure disorder with breakthrough seizures -CT of the brain was unremarkable -Continue home medications Lamictal, Topamax, Zarontin, Briviact, -Awaiting EEG results -Neurology consulted for further recommendations, thus far they are indicating vagal nerve stimulator implantation -Seizure precautions Bipolar disorder -Continue Seroquel DVT prevention -Sequential compression devices Jacky Calvo Sep 03, 2017 13:05
[2017-09-03] MEDS: CALCIUM POLYCARBOPHIL 625 MG TAB PO SCH ×2 (15:58→22:22)
--- NOTE | 2017-09-03 17:35 | MG ---
cc: Jose Guadalupe Calderón MD, PhD DATE OF STUDY: 09/03/2017 EEG TEST NUMBER: [id number] TECHNIQUE: A 17-channel EEG. DESCRIPTION: The background rhythm reveals a symmetrical alpha frequency, 8-9 Hz, some beta activity superimposed, probably medication effect. Fairly prominent muscle artifact identified. No lateralizing features seen. No epileptiform discharges. Mild slowing in theta during drowsiness. Photic results in fairly well-developed driving response. INTERPRETATION: Overall normal EEG. Jose Guadalupe Calderón MD, PhD MARILYN/SB , 04:36 PM , 04:44 PM
[2017-09-03] MEDS ORDERED: QUEtiapine FUMARATE 200 MG TAB PO SCH (21:00)
[2017-09-03] MEDS ORDERED: clonazePAM 1 MG TAB PO SCH (21:00)
[2017-09-03] MEDS ORDERED: lamoTRIgine 100 MG TAB PO ONE (23:00)
[2017-09-04] VITALS (11 sets, daily range): BP systolic 79–99; BP diastolic 54–66; PULSE 100–118; RESP 14–35; TEMP 98.5–98.8; O2SAT 98
[2017-09-04] MEDS ORDERED: CLON1 PO (08:06)
--- NOTE | 2017-09-04 08:06 | HHI.DCPOC ---
Discharge Care Plan Diagnosis: (1) Seizure disorder Goals to Promote Your Health * To prevent worsening of your condition and complications * To maintain your health at the optimal level Directions to Meet Your Goals Take your medications as prescribed Follow your dietary instruction Follow activity as directed Keep your appointments as scheduled Take your immunizations and boosters as scheduled If your symptoms worsen call your PCP, if no PCP go to Urgent Care Center or Emergency Room Smoking is Dangerous to Your Health. Avoid second hand smoke Call the 24-hour hour crisis hotline for domestic abuse at Jacky Calvo Sep 04, 2017 08:06
[2017-09-04] MEDS: ZARONTIN PO SCH (08:25)
[2017-09-04] MEDS: BRIVIACT 50 MG PO SCH (08:26)
[2017-09-04] MEDS: FOLBIC PO SCH (08:28)
[2017-09-04] MEDS: SODIUM CHLORIDE 0.9% FLUSH 10 ML FLUSH IV FLUSH SCH (08:28)
[2017-09-04] MEDS: TOPIRAMATE 25 MG TAB PO SCH (08:29)
[2017-09-04] MEDS: DOCUSATE SODIUM 100 MG/10 ML UDC PO SCH (08:29)
[2017-09-04] MEDS: CALCIUM POLYCARBOPHIL 625 MG TAB PO SCH (08:29)
[2017-09-04] MEDS ORDERED: LAMICTAL PO SCH ×2 (09:00→21:00)
--- NOTE | 2017-09-04 09:48 | HHI.DS ---
Discharge Summary Admission Date Sep 02, 2017 at 23:03 Discharge Date: Sep 04, 2017 Admitting Diagnosis Multiple seizures (1) Seizures ICD Code: R56.9 - Unspecified convulsions Diagnosis: Principal Status: Acute Procedures Electroencephalogram: Overall normal EEG Brief History - From Admission 26-year-old female with known history of seizure disorder, bipolar disorder who presented to the hospital for evaluation of seizure. Patient appears to be very tired and has difficulty arousing her when I spoke with her. I was able to wake her up, she did not want to participate that well in conversation and kept falling back asleep. Patient states that she did not get much sleep last night because the antinausea medication we gave her did not help that well. Apparently the patient does have history of chronic seizures and is managed by specialist up at [facility]. She does have an appointment with them on Friday. However records indicate that she usually has approximately 8 seizures a month, however he had 4 seizures yesterday and that is what brought the patient to get evaluated at the hospital. It was indicated that patient has been compliant with her medications and despite this she continued to have seizures. As indicated that patient has tried almost all type of seizure medications and is followed by a seizure specialist. Patient did have a grand mal seizure while in the emergency department and was witnessed by the ER physician. Patient was given Ativan 2 mg IV and patient was admitted the hospital for further evaluation and management. CBC/BMP: 09/03/17 1040 09/03/17 1040 Significant Findings Laboratory Tests Test 09/02/17 22:13 09/03/17 10:40 Red Blood Count 3.85 MIL/MM3 (4.00-5.30) 3.73 MIL/MM3 (4.00-5.30) Hemoglobin 11.5 GM/DL (11.6-15.3) 10.7 GM/DL (11.6-15.3) Hematocrit 34.7 % (35.0-46.0) 33.5 % (35.0-46.0) Neutrophils (%) (Auto) 82.9 % (16.0-70.0) 71.5 % (16.0-70.0) Neutrophils # (Auto) 8.9 TH/MM3 (1.8-7.7) Creatinine 1.20 MG/DL (0.50-1.00) Random Glucose 112 MG/DL (74-106) Calcium Level 8.1 MG/DL (8.5-10.1) 7.8 MG/DL (8.5-10.1) Aspartate Amino Transf (AST/SGOT) 12 U/L (15-37) Chloride Level 109 MEQ/L (98-107) 112 MEQ/L (98-107) Carbon Dioxide Level 11.9 MEQ/L (21.0-32.0) 19.4 MEQ/L (21.0-32.0) Anion Gap 16 MEQ/L (5-15) Estimat Glomerular Filtration Rate 53 ML/MIN (>89) Mean Corpuscular Hemoglobin Concent 31.9 % (32.0-36.0) Monocytes (%) (Auto) 9.4 % (0.0-8.0) Blood Urea Nitrogen 19 MG/DL (7-18) Imaging Last Impressions Head CT 09/02/172148 Signed Impressions: CONCLUSION: 1. Negative CT Head non contrast. PE at Discharge GENERAL: Well-developed, well-nourished, in no acute distress. alert and orientated HEENT: Head is normocephalic without any lesions or masses noted. Facial features are symmetric. Eyes: Extraocular muscles are intact. Conjunctivae were clear. NECK: Supple without any masses. Trachea midline no deviation. No JVD, CARDIAC: Regular rhythm, regular rate. S1/S2 are heard. No murmurs gallops or rubs. LUNGS: Clear to auscultation bilaterally. No wheeze, rhonchi or rales. No use of accessory muscles on inspiration or expiration. ABDOMEN: Soft, nontender. Nondistended. Bowel sounds heard in all 4 quadrants. No organomegaly or masses. Negative rebound, negative guarding EXTREMITIES: No edema, pulses are equal bilaterally. No cyanosis or clubbing NEUROLOGY: Mood and affect appear appropriate. Cranial nerves II through XII grossly intact. Moving all extremities, speech is clear Hospital Course 26-year-old female with known history of chronic seizures. Patient originally presented seizure because she had 4 and 1 day. Usually she has 8 monthly. She is followed by [facility] and does have an appointment tomorrow. Patient had a witnessed grand mal seizure in emergency department and it was recommended by the ER physician that the patient be admitted for further evaluation and management. It was indicated that the patient was compliant with her antiseizure medications. Patient was admitted to ICU and monitored, patient did not have any further seizures while she was here in the hospital. Neurology evaluated the patient, EEG was performed which was normal. Patient was continued on her antiseizure medication and neurology added clonazepam. Patient clinically stable this time. She does have an appointment tomorrow at [facility]. She is entertaining the idea of a vagal nerve stimulator for seizure control. Patient clinically stable at this time. No recurrent seizures. We will plan discharge home accordingly. Pt Condition on Discharge: Stable Discharge Disposition: Discharge Home Discharge Time: <= 30 minutes Discharge Instructions DIET: Follow Instructions for: As Tolerated, No Restrictions Activities you can perform: Regular-No Restrictions Follow up Referrals: PCP Follow-up - 1 Week New Medications: Clonazepam (Klonopin) 1 Mg Tab 1 MG PO HS for Seizure Control for 3 Days, TAB Continued Medications: Brivaracetam (Briviact) 100 Mg Tab 100 MG PO BID for Control Seizures, TAB 0 Refills Calcium Polycarbophil (Fiber Laxative) 625 Mg Tab 625 MG PO BID, TAB 0 Refills Docusate Sodium (Stool Softener) 50 Mg Capsule 50 MG PO BID Ethosuximide (Zarontin) 250 Mg Cap 500 MG PO BID Folic Sugi-Mcybxhirsq-Czlzyifj (Folbic) 2.5-25-2 Mg Tab 1 TAB PO DAILY Lamotrigine ER (Lamictal XR) 200 Mg Lisa 200 MG PO BID for Control Seizures, #30 TAB 0 Refills Quetiapine (Seroquel) 400 Mg Tab 800 MG PO HS, #30 TAB 0 Refills Topiramate (Topamax) 25 Mg Tab 75 MG PO BID for Control Seizures, #60 TAB 0 Refills Jacky Calvo Sep 04, 2017 09:48
== END 2017-09-04 09:28 | disposition home or self-care (01) ==
LOC: PHED 20:19 → PHEDA 23:03 → PH3A 09-03 00:48 → PHICU 09-03 09:10
PROVIDERS: ADMIT Hospitalist; ATTEND Hospitalist
DX: G40.409 Other generalized epilepsy and epileptic syndromes, not intractable, without status epilepticus (principal); E86.0 Dehydration; F31.9 Bipolar disorder, unspecified; F43.20 Adjustment disorder, unspecified; Z79.899 Other long term (current) drug therapy
CPT/HCPCS: 70450; 80048; 80053; 81001; 84702; 85025; 95819; 96361; 96374; 96375; 99285; G0378; J0780; J2060; J7030